=== PATIENT | male | born 2000 | race Caucasian/White ===

== ENCOUNTER 2020-05-15 14:20 | Emergency (ER) | payer OTHER ==
[~2020-05-15] VITALS: Ht 172.7 cm; Wt 81.6 kg
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
--- NOTE | 2020-05-15 14:55 | NUR ---
called security for wanding
--- NOTE | 2020-05-15 15:09 | NUR ---
pt unable to provide urine specimen at this time. provided with water
[2020-05-15 15:17] LABS: BASOPHILS # (AUTO) 0.1 /CMM (0.0-0.2); BASOPHILS % (AUTO) 1.2 % (0.0-2.0); EOSINOPHILS % (AUTO) 1.2 % (0.0-6.0); HEMATOCRIT 46 % (39-51); HEMOGLOBIN 16.2 g/dL (13.5-17.5); LYMPHOCYTES # (AUTO) 1.5 /CMM (0.8-4.8); MEAN CORPUSCULAR HGB CONC 35 g/dl (31.0-36.0); MEAN CORPUSCULAR VOLUME 83 fL (80-96); MONOCYTES # (AUTO) 0.6 /CMM (0.1-1.30); MONOCYTES % (AUTO) 8.4 % (2.0-12.0); NEUTROPHILS # (AUTO) 4.9 /CMM (1.8-8.9); NEUTROPHILS % (AUTO) 68.2 % (43.0-81.0); PLATELET COUNT (AUTO) 329 /CMM (150-450); RED BLOOD CELL COUNT(AUTO) 5.56 MIL/uL (4.5-6.0); WHITE BLOOD COUNT (AUTO) 7.2 K/uL (4.3-11.0)
[2020-05-15 15:26] LABS: CALCIUM, SERUM 9.3 mg/dL (8.5-10.1); CARBON DIOXIDE 28 mmol/L (21-32); CHLORIDE 106 mmol/L (98-107); CREATININE 1.1 mg/dL (0.6-1.3); GLUCOSE 102 mg/dL (74-106); POTASSIUM 4.2 mmol/L (3.5-5.1); SODIUM SERUM 144 mmol/L (136-145); UREA NITROGEN, BLOOD 14 mg/dL (7-18)
[2020-05-15 15:32] LABS: ACETAMINOPHEN 0 ug/ml (10-30); ALANINE AMINOTRANSFERASE 109 U/L (12-78); ALBUMIN 4.3 g/dL (3.4-5.0); ALCOHOL, BLOOD < 3 mg/dL (0-0); ALKALINE PHOSPHATASE 75 U/L (46-116); ASPARTATE AMINOTRANSFERASE 40 U/L (15-37); BILIRUBIN,DIRECT 0.1 mg/dL (0.0-0.2); BILIRUBIN,TOTAL 0.5 mg/dL (0.2-1.0); TOTAL PROTEIN, SERUM 7.9 g/dL (6.4-8.2)
[2020-05-15 16:30] LABS: BILIRUBIN,URINE Negative (NEGATIVE); COLOR,URINE LIGHT YELLOW (YELLOW); LEUKOCYTE ESTERASE ,URINE Negative (NEGATIVE); NITRITE, URINE Negative (NEGATIVE); PROTEIN,URINE Negative (NEGATIVE); UGLUCOSE Negative (NEGATIVE); UROBILINOGEN,URINE 0.2 EU/dL (0.2)
--- NOTE | 2020-05-15 16:30 | NUR ---
urine collected sent to lab
--- NOTE | 2020-05-15 18:33 | NUR ---
PT CLEARED. ANGEL CALLED [phone] AND WILL BE ON HER [address].
--- NOTE | 2020-05-15 18:47 | NUR ---
covid swab collected sent to lab
--- NOTE | 2020-05-15 19:21 | NUR ---
CALLED FOR COVID SWAB
--- NOTE | 2020-05-15 19:26 | NUR ---
SPOKE TO DEBRA ASHER, STATED SHE SENT THE COVID SWAB. I CALLED LAB TO FOLLOW UP. LAB WILL CALL BACK.
--- NOTE | 2020-05-15 19:27 | NUR ---
LAB CALLED, WILL RUN THE COVID SWAB.
--- NOTE | 2020-05-15 21:08 | NUR ---
ACCEPTING INFO FOR [facility], ACCEPTING MD DR DAWNA ARELLANO, UNIT [facility] [address], RN TO RN REPORT AT [phone], PLS WAIT 30 MINS BEFORE CALLING REPORT
[2020-05-15 21:26] VITALS: BP 149/84
--- NOTE | 2020-05-15 21:30 | NUR ---
[facility] CALLED FOR TRANSPORT. NO AMBULANCES AVAILABLE UNTIL MORNING.
--- NOTE | 2020-05-15 21:34 | NUR ---
[facility] CALLED FOR TRANSPORT TO [facility]. ETA 60-90 MINUTES.
--- NOTE | 2020-05-15 21:51 | NUR ---
REPORT GIVEN TO CHARGE NURSE VITA ASHER FOR [facility]
--- NOTE | 2020-05-15 22:32 | NUR ---
REPORT GIVEN TO [facility]. PT TRANSFERED.
== END 2020-05-15 22:38 ==
LOC: ER 14:22
DX: R46.89 Other symptoms and signs involving appearance and behavior (principal); F84.0 Autistic disorder; R74.01 Elevation of levels of liver transaminase levels; Z20.828 Contact with and (suspected) exposure to other viral communicable diseases; R00.0 Tachycardia, unspecified
CPT/HCPCS: 36415; 80048; 80076; 80299; 80307; 80320; 81003; 85025; 87426; 99285; C9803; G0480; J7060